=== PATIENT | male | born 1980 | race Caucasian/White ===

== ENCOUNTER → 2016-11-23 | Outpatient (CLI) | payer OTHER ==
[2016-11-23 14:06] LABS: ESTIMATED AVERAGE GLUCOSE 108 mg/dl; HA1C FLAG Normal (Normal)
== END | disposition home or self-care (01) ==
LOC: C.LABMFLN 10:18
PROVIDERS: ATTEND Family Medicine
DX: G62.9 Polyneuropathy, unspecified (principal)

== ENCOUNTER → 2017-04-02 | Outpatient (CLI) | payer OTHER ==
[2017-04-05 16:36] LABS: ALBUMIN 4.1 G/DL (3.8-4.8); GAMMA GLOBULIN 1.1 G/DL (0.8-1.7); TOTAL PROTEIN 7.2 G/DL (6.2-8.3)
[2017-04-07 09:07] LABS: METHYLMALONIC ACID 114 NMOL/L (87-318)
== END | disposition home or self-care (01) ==
LOC: C.LABMFLN 09:03
PROVIDERS: ATTEND Family Medicine
DX: Z00.00 Encounter for general adult medical examination without abnormal findings (principal); L71.9 Rosacea, unspecified; F10.20 Alcohol dependence, uncomplicated; F41.9 Anxiety disorder, unspecified; G56.00 Carpal tunnel syndrome, unspecified upper limb; F32.9 Major depressive disorder, single episode, unspecified; M62.838 Other muscle spasm; G62.9 Polyneuropathy, unspecified